=== PATIENT | female | born 1950 | race Caucasian/White ===

== ENCOUNTER 2020-01-05 08:26 | Outpatient (CLI) | payer MEDICARE, SELFPAY ==
--- NOTE | 2020-01-05 11:30 | NEURO_ITS ---
Patient Number: [id number] Impression: # Complains of left lower extremity discomfort medial to paul. # Normal nerve conduction study except relative left posterior tibial nerve slower compared to peroneal nerve. # Normal needle/EMG exam. # Clinical correlation recommended. Nerve Conduction Studies Anti Sensory Summary Table Stim Site NR Peak (ms) P-T Amp (?V) Site1 Site2 Delta-P (ms) Dist (cm) Kyle (m/s) Left Sup Fibular Anti Sensory (Ant Lat Mall) 14 cm 3.6 6.7 14 cm Ant Lat Mall 3.6 16.0 44 Left Sural Anti Sensory (Lat Mall) Calf 3.7 14.8 Calf Lat Mall 3.7 16.0 43 Motor Summary Table Stim Site NR Onset (ms) O-P Amp (mV) Site1 Site2 Delta-0 (ms) Dist (cm) Kyle (m/s) Left Peroneal Motor (Vastus Med) Ankle 3.7 1.5 Popit Ankle 7.4 40.0 54 Popit 11.1 1.1 Left Tibial Motor (Abd Simpson Brev) Ankle 5.3 8.0 Knee Ankle 8.1 39.0 48 Knee 13.4 3.7 F Wave Studies NR F-Lat (ms) L-R F-Lat (ms) Left Peroneal (Mrkrs) (EDB) 43.13 Left Tibial (Mrkrs) (Abd Hallucis) 46.69 EMG Side Muscle Nerve Root Ins Act Fibs Amp Dur Recrt Comment Left AntTibialis Dp Br Fibular L4-5 Nml Nml Nml Nml Nml Left Gastroc Tibial S1-2 Nml Nml Nml Nml Nml Left Fibularis Long Sup Br Fibular L5-S1 Nml Nml Nml Nml Nml Left Flex Dig Long Tibial L5-S2 Nml Nml Nml Nml Nml Left Ext Dig Brev Dp Br Fibular L5, S1 Nml Nml Nml Nml Nml Left Ext Dig Long Dp Br Fibular L5-S1 Nml Nml Nml Nml Nml Left PostTibialis Tibial L5, S1 Nml Nml Nml Nml Nml MTDD
== END 2020-01-05 08:27 | disposition home or self-care (01) ==
PROVIDERS: PCP Family Medicine; Visit Provider Family Medicine
DX: M79.605 Pain in left leg (principal); M54.5 Low back pain
CPT/HCPCS: 95886; 95908